=== PATIENT | female | born 1975 ===

== ENCOUNTER 2017-04-21 16:02 | Emergency (ER) | payer OTHER ==
[~2017-04-21] VITALS: Ht 170.2 cm; Wt 188.7 kg
== END 2017-04-21 20:23 | disposition home or self-care (01) ==
LOC: ER 16:02
DX: S80.02XA Contusion of left knee, initial encounter (principal); W18.39XA Other fall on same level, initial encounter; Y93.89 Activity, other specified; Y92.230 Patient room in hospital as the place of occurrence of the external cause; Y99.8 Other external cause status

== ENCOUNTER → 2017-04-21 | Emergency (ER) | payer OTHER ==
[~2017-04-21] VITALS: Ht 170.2 cm; Wt 188.7 kg
[~2017-04-21] MED LIST: TENORETIC 100 T1 TAB PO
== END | disposition left against medical advice (07) ==
LOC: ER 13:26
DX: Z53.20 Procedure and treatment not carried out because of patient's decision for unspecified reasons (principal)

== ENCOUNTER 2017-10-25 11:11 | Emergency (ER) | payer OTHER ==
[~2017-10-25] VITALS: Ht 167.6 cm; Wt 184.2 kg
[2017-10-25] MEDS ORDERED: MEDROLPACK PO (14:33)
[2017-10-25] MEDS ORDERED: NORFLEX100MG PO (14:33)
[2017-10-25] MEDS ORDERED: KETO10TA2 PO (14:33)
== END 2017-10-25 21:31 | disposition home or self-care (01) ==
LOC: ER 11:11
DX: M54.5 Low back pain (principal)